=== PATIENT | female | born 1935 | race Caucasian/White ===

== ENCOUNTER 2016-12-02 09:13 | Inpatient (IN) | payer OTHER ==
[2016-12-02] VITALS (7 sets, daily range): BP systolic 145–187; BP diastolic 81–96
[~2016-12-02] VITALS: Ht 160 cm; Wt 91.9 kg
--- NOTE | ~2016-12-02 | 2DMMODE ---
[facility] [address] [place] [address] 2 D/M-MODE ECHOCARDIOGRAM Name: ZAIREGUERRERO Room #: 202-P [facility] IN ..#: [id number] Admission: 12/02/16 Attend Phys: Marko Encinas MD Discharge: Date of : 31 Date of Service: 12/03/16 1005 Report #: [id number] THIS REPORT FOR: //name// APPROVED REPORT Study performed: 12/03/2016 09:21:21 EXAM: Comprehensive 2D, Doppler, and color-flow Echocardiogram Patient Location: Bedside Room #: 202 Status: routine Other Information Study Quality: Adequate Indications Chest pain, palpitations, tachycardia. Hx: HTN 2D Dimensions RVDd: 34.66 mm LVEF(%): 64.80 (>50%) IVSd: 10.54 (7-11mm) LVOT Diam: 20.04 (18-24mm) LVDd: 44.79 mm PWd: 10.02 (7-11mm) Ascending Ao: 32.06 (22-36mm) LVDs: 28.99 (25-40mm) Aortic Root: 30.23 mm Baltazar's LVEF: 64.80 % Volumes Left Atrial Volume (Systole) Single Plane 4CH: 31.24 mL Single Plane 2CH: 32.92 mL Aortic Valve AoV Peak Charli.: 1.65 m/s AO Peak Gr.: 10.95 mmHg LVOT Max P.52 mmHg LVOT Max V: 1.46 m/s MALDONADO Vmax: 2.78 cm2 Mitral Valve E/A Ratio: 1.2 MV Decel. Time: 228.06 ms MV E Max Charli.: 1.27 m/s MV A Charli.: 1.06 m/s MV PHT: 66.14 ms IVRT: 87.66 ms [facility] [employer] [place] [address] 2 D/M-MODE ECHOCARDIOGRAM Name: GUERRERO TAI Room #: 202-P [facility] IN .R.#: [id number] Admission: 12/02/16 Attend Phys: Marko Encinas MD Discharge: Date of : 31 Date of Service: 12/03/16 1005 Report #: [id number] Pulmonary Valve PV Peak Charli.: 0.93 m/s PV Peak Gr.: 3.46 mmHg Pulmonary Vein P Vein S: 0.67 m/s P Vein D: 0.48 m/s P Vein S/D Ratio: 1.40 Tricuspid Valve RAP Estimate: 5.00 mmHg Left Ventricle The left ventricle is normal size. There is normal LV segmental wall motion. There is normal left ventricular wall thickness. Left ventricular systolic function is normal. LVEF is 60-65%. Moderate diastolic dysfunction is present (pseudonormal filling). Right Ventricle The right ventricle is normal size. The right ventricular systolic function is normal. Atria The left atrium size is normal. The right atrium size is normal. Aortic Valve The aortic valve is normal in structure. No aortic regurgitation is present. There is no aortic valvular stenosis. Mitral Valve The mitral valve is normal in structure. Mild mitral annular calcification. Trace mitral regurgitation. No evidence of mitral valve stenosis. Tricuspid Valve The tricuspid valve is normal in structure. There is no tricuspid valve regurgitation noted. Pulmonic Valve The pulmonary valve is normal in structure. There is no pulmonic valvular regurgitation. Great Vessels The aortic root is normal in size. The ascending aorta is normal in size. IVC is normal in size and collapses >50% with inspiration. [facility] [address] [place] [address] 2 D/M-MODE ECHOCARDIOGRAM Name: ZAIREGUERRERO Room #: 202-P [facility] IN .R.#: [id number] Admission: 12/02/16 Attend Phys: Marko Encinas MD Discharge: Date of : 31 Date of Service: 12/03/16 1005 Report #: [id number] Pericardium There is no pericardial effusion. <Conclusion> The left ventricle is normal size. LVEF is 60-65%. The aortic valve is normal in structure. The mitral valve is normal in structure. Mild mitral annular calcification. Trace mitral regurgitation. The tricuspid valve is normal in structure. The pulmonary valve is normal in structure. The aortic root is normal in size. <ELECTRONICALLY SIGNED> By: Kian Matias MD 12/03/16 1005 1005 1005 Kian Matias MD /INF
--- NOTE | ~2016-12-02 | EKG ---
[place] [address] [address] [facility] [place] [address] ELECTROCARDIOGRAM REPORT Name: GUERRERO TAI Room #: PRE M.R.#: [id number] Admission: Attend Phys: Discharge: Date of : 31 Report #: [id number] THIS REPORT FOR: //name// [facility] ED Test Date: 2016-12-02 Test Time: 09:15:19 Pat Name: GUERRERO TAI Department: Room: Gender: F Reverser: brandon : 1935 Requested By: Raine Ha Order Number: [id number] MD: Measurements Intervals [facility] [place] Rate: 130 P: 72 LA: 148 QRS: -16 QRSD: 88 T: 42 QT: 299 QTc: 440 Interpretive Statements Sinus tachycardia Borderline left axis deviation Baseline wander in lead(s) V1 Compared to ECG 02/14/2016 17:39:47 Poor R-wave progression no longer present [email or web address] By: 4 4 Epiphany Epiphany, /EPI
--- NOTE | ~2016-12-02 | HC ---
[facility] [place] [address] [place] [address] CONSULTATION Name: ZAIREGUERRERO Room #: 202-P [facility] IN M.R.#: [id number] Admission: 12/02/16 Attend Phys: Marko Encinas MD Discharge: 12/05/16 Date of : 31 Report #: [id number] THIS REPORT FOR: //name// CC: Jovani Encinas REASON FOR CONSULTATION: Hypertensive crisis and chest discomfort. HISTORY OF PRESENT ILLNESS: This is a very pleasant 81-year-old female patient who has had chronic issues with hypertension all her adult life. She apparently has significant kidney disease with a calculated GFR today of less than 30. The patient had been having issues with her blood pressure in the 140 to 150 systolic at her best. She developed some chest discomfort in the morning, which actually upon questioning was not anginal in nature, was associated to sensation of a tachycardia or fast heart rate. She stated that she had seen another physician yesterday, who wanted to optimize her antihypertensive regimen and asked her to abruptly stop her clonidine for which she was taking 2 pills of 0.2 daily and start hydralazine. After she did that, she noticed that her heart rate began going quite fast and she became concerned. Her blood pressure has also been quite elevated and fluctuated. Her son states that she is very anxious and is always worrying about things. She denies syncope or near syncope. She is a very active woman otherwise without any significant limitations. She states that in the past many years ago, she had an episode of what she calls a supraventricular tachycardia for which she has not had any major issues. She has a long list of allergies and sensitivities to medications in which atenolol is in those. PAST MEDICAL HISTORY: Significant for: 1. Hypertension. 2. Chronic kidney disease with a markedly decreased GFR. Past medications have been numerous, more recently had been clonidine 0.2 patch, but had a rash from the patch and switched to oral agents which was not controlling, the medication was getting her fatigued and tired. She is on hydrochlorothiazide 25. She states that dihydropyridine and diltiazem caused her lower extremities and ankles to swell up, but was never placed on concomitant AMBROSIO, ARB. MEDICATIONS: Reported medications are losartan, tramadol, gabapentin, lovastatin, omeprazole, aspirin, trazodone, nystatin, Phenergan, hydralazine x1 pill. ALLERGIES: No known drug allergies. Numerous sensitivities are noted in a sheet that she has at her bedside. SOCIAL HISTORY: The patient is . Does not smoke, consume alcohol, is very active, does not follow particular exercise regimen. [address] [address] CONSULTATION Name: GUERRERO TAI Room #: 202-P [facility] IN M.R.#: [id number] Admission: 12/02/16 Attend Phys: Marko Encinas MD Discharge: 12/05/16 Date of : 31 Report #: [id number] REVIEW OF SYSTEMS: Except for symptoms previously mentioned and those commensurate with comorbid states, the 10 point review of system is negative. PHYSICAL EXAMINATION: GENERAL: Well-developed white female, resting comfortably in no acute distress. VITAL SIGNS: Noted and reviewed in the chart. HEENT: Normocephalic, atraumatic. Pupils are equal, round, reactive to light and accommodation. Extraocular muscles are intact. Sclerae and conjunctivae are anicteric. NECK: JVD is normal. Carotid upstrokes are bilaterally symmetrical. No bruits are heard. No thyromegaly. No lymphadenopathy. LUNGS: Clear to auscultation. No wheezes, rhonchi or crackles. No CVA tenderness. CARDIAC: Demonstrates a regular rhythm. Normal first and second heart sounds. No ventricular or atrial gallops, no rubs noted. No murmurs. No lifts or heaves, PMI normal. ABDOMEN: Soft, nontender, nondistended. Normal bowel sounds. EXTREMITIES: Without cyanosis, clubbing or edema. Distal pulses are intact. DTR symmetrical. NEUROLOGIC: Cranial nerves 2-12 are grossly normal and symmetrical. PSYCHIATRIC: Alert, oriented with normal affect. SKIN: Warm and dry. DIAGNOSTIC DATA: Electrocardiogram, sinus tachycardia, normal axis, normal , no acute changes. LABORATORY DATA: Reviewed and noted in the chart with a BUN of 26, creatinine of 1.7 but a calculated GFR of 29. RADIOLOGIC DATA: Chest x-ray without acute processes. IMPRESSION: 1. Chest pains, not anginal in nature, but she has not had a stress test for quite some time, I think we can perform that as an outpatient since it does not appear to be anginal, but associated with her tachycardia. The tachycardia could have been because of the abrupt removal of clonidine or other issues. She does have a history of SVT in the past. She was started on atenolol once again in this admission for which she was profoundly fatigued and tired previously. In view of this, I am going to stop that. We will try verapamil instead with the use of the hydrochlorothiazide and the presence of the losartan also to see we can control blood pressures. 2. Hypertension. We are going to proceed with the medication as stated above to see if we can bring that under better control without any major symptoms. 3. Urinary tract infection is diagnosed in chart as per primary care and nephrology. [facility] [address] [place] [address] CONSULTATION Name: GUERRERO TAI Room #: 202-P [facility] IN M.R.#: [id number] Admission: 12/02/16 Attend Phys: Marko Encinas MD Discharge: 12/05/16 Date of : 31 Report #: [id number] 4. Chronic kidney disease. This may be a major aspect of why she has significant difficult blood pressure and we will need to further pursue that. <ELECTRONICALLY SIGNED> By: Kian Matias MD 12/07/16 1720 [id number] [id number] Kian Matias MD /nt
--- NOTE | ~2016-12-02 | D ---
[facility] [place] [address] DISCHARGE SUMMARY Name: GUERRERO TAI Room #: 202-P [facility] IN M.R.#: [id number] Admission: 12/02/16 Attend Phys: Marko Encinas MD Discharge: 12/05/16 Date of : 31 Report #: [id number] THIS REPORT FOR: //name// CC: Jovani Encinas DATE OF SERVICE: 12/05/2016 DISCHARGE DIAGNOSES: 1. Hypertensive urgency. 2. Acute kidney injury. 3. Hyperlipidemia. 4. Tachycardia. 5. Hypoalbuminemia. PROCEDURE DONE: VQ scan and chest x-ray. CONSULTATION: Cardiology consultation. OTHER PROCEDURES: Echocardiogram. REASON FOR THE PRESENTATION: This is an 81-year-old who presented with chest pain and palpitation. HISTORY OF PRESENT ILLNESS: An 81-year-old who presented to the emergency room complaining of tachycardia and elevated blood pressure with associated chest pain. She had some palpitation after she was started on hydralazine recently. She was taking atenolol. She presented to the emergency room with tachycardia with a heart rate of 120-140, associated with some tightness of the chest and was admitted for further evaluation and management. HOSPITAL COURSE: The patient was ruled out for acute coronary syndrome. VQ was negative for PE. Echocardiogram was done and this revealed an ejection fraction of 60% to 65% with moderate diastolic dysfunction. She had an elevated creatinine on presentation at 1.7 that resolved with hydration with creatinine coming down to a baseline of 1.4. We have adjusted her blood pressure medications and she should be on the following. 1. Carvedilol 25 mg twice a day. 2. . 3. Promethazine 25 mg p.r.n. 4. Verapamil was added and she should take 80 mg 3 times a day. 5. Aspirin. 6. Tramadol. 7. Trazodone. [facility] [address] [place] [address] DISCHARGE SUMMARY Name: GUERRERO TAI Room #: 202-P [facility] IN [facility].#: [id number] Admission: 12/02/16 Attend Phys: Marko Encinas MD Discharge: 12/05/16 Date of : 31 Report #: [id number] 8. Hydrochlorothiazide. 9. Losartan 100 mg. Those should be her blood pressure medications on going on. Please realize that we have discontinued her atenolol and we have discontinued her hydralazine. DISCHARGE DIAGNOSIS: Good. DIET: Low salt diet. FOLLOWUP: 1. She is to follow up with Dr. Matias in 2 weeks. 2. She is to follow up with her primary care physician Dr. Jovani Unger in 2 weeks. DISCHARGE MEDICATIONS: See above notes. DISCHARGE CONDITION: Excellent. <ELECTRONICALLY SIGNED> By: Kelton Shepard MD 12/05/16 1548 1002 1110 Kelton Shepard MD /geoffrey
[~2016-12-02 09:13] MED LIST: ATENOLOL 50MG T50 M1 PO; CATAPRES-TTS 20.2 M1 TRANSDERM; CEPHALEXIN 500500 M3 PO; COZAAR 50 MG TA50 M2 PO; HYDRALAZINE 2525 MG PO; HYDROCHLOROTHIA25 M1 PO; HYTRIN 1 MG CAP1 MG GT; HYTRIN 5 M5 MG/1 CAP PO; LOSARTAN POTAS100 MG PO; LOVASTATIN40 MG PO; NEURONTIN 300300 M1 PO; NORCO 5-325 TA1 EACH PO; OMEPRAZOLE 20 M20 M1 PO; TRAMADOL 50 MG50 MG PO
[2016-12-02 09:30] LABS: ABSOLUTE NEUTROPHILS 6.1 thou/uL (1.4-8.2); BASOPHILS 0.7 % (0.0-2.0); HEMATOCRIT 39.3 % (37.0-47.0); HEMOGLOBIN 13.4 gm/dL (12.0-15.0); LYMPHOCYTES 21.2 % (24.0-44.0); MCH 31.3 pg (26.0-34.0); MCV 92.2 fL (80.0-100.0); MONOCYTES 6.6 % (1.0-8.0); PLATELET COUNT 218 thou/uL (150-400); POLYS 69.5 % (36.0-66.0); RBC 4.27 mil/uL (4.20-5.00); RDW 13.1 % (10.5-14.5); WBC 8.8 thou/uL (4.0-11.0)
[2016-12-02 09:33] LABS: MANUAL DIFF NO
[2016-12-02 09:38] LABS: ANION GAP 10 mmol/L (7-16); BUN 26 mg/dL (7-18); CALCIUM 9.5 mg/dL (8.5-10.1); CHLORIDE 99 mmol/L (98-107); CO2 28 mmol/L (21-32); CREATININE 1.7 mg/dL (0.6-1.0); GLUCOSE 190 mg/dL (74-106); POTASSIUM 3.8 mmol/L (3.5-5.1); SODIUM 137 mmol/L (136-145)
[2016-12-02 09:47] LABS: ALKALINE PHOSPHATASE 81 U/L (46-116); SGOT 25 U/L (15-37); SGPT 26 U/L (30-65); TOTAL BILIRUBIN 0.3 mg/dL (<0.1-1.0); TOTAL PROTEIN 7.6 g/dL (6.4-8.2); TROPONIN-I < 0.04 ng/mL (<0.04-0.07)
[2016-12-02 10:27] LABS: URINE BILIRUBIN NEGATIVE (Negative); URINE BLOOD NEGATIVE (Negative); URINE COLOR YELLOW; URINE GLUCOSE-RANDOM* NEGATIVE (Negative); URINE KETONES NEGATIVE (Negative); URINE NITRITE NEGATIVE (Negative); URINE PROTEIN (DIPSTICK) NEGATIVE (Negative); URINE SPECIFIC GRAVITY <= 1.005 (1.003-1.035); URINE UROBILINOGEN 0.2 E.U./dl (0.2-1.0)
[2016-12-02 10:43] LABS: AMORPHOUS URATES Moderate /LPF (None Seen); CASTS None Seen /LPF (None Seen); SQUAMOUS 0-3 Few /LPF (0-3); URINE RBC 0-2 Rare /HPF (0-2); URINE WBC 0-5 Rare /HPF (0-5)
[2016-12-02 10:44] LABS: BACTERIA 1-9 Few /HPF (None Seen)
[2016-12-02] MEDS ORDERED: ASPIR 8181 MG PO (15:11)
[2016-12-02] MEDS ORDERED: NYAMYC15 GM TOP (15:13)
[2016-12-02] MEDS ORDERED: TRAZODONE HCL50 MG PO (15:13)
[2016-12-02] MEDS ORDERED: PHENERGAN 25 MG25 M1 PO (15:15)
[2016-12-02] MEDS ORDERED: HYDRALAZINE 2525 MG PO (15:16)
[2016-12-03 01:26] LABS: HEMATOCRIT 35.1 % (37.0-47.0); MCH 31.4 pg (26.0-34.0); MCHC 34.1 g/dL (28.0-37.0); MCV 92.3 fL (80.0-100.0); RBC 3.8 mil/uL (4.20-5.00); RDW 12.9 % (10.5-14.5); WBC 5.7 thou/uL (4.0-11.0)
[2016-12-03 01:41] LABS: CALCIUM 8.3 mg/dL (8.5-10.1); CREATININE 1.3 mg/dL (0.6-1.0); POTASSIUM 4.4 mmol/L (3.5-5.1)
[2016-12-03 03:14] VITALS: BP 149/88
[2016-12-03 07:13] VITALS: BP 177/94
[2016-12-03 11:22] VITALS: BP 153/69
[2016-12-03 16:25] VITALS: BP 158/77
[2016-12-03 19:21] VITALS: BP 181/87
[2016-12-03 23:36] VITALS: BP 187/94
[2016-12-04 04:03] VITALS: BP 174/87
[2016-12-04 05:28] LABS: HEMATOCRIT 38.3 % (37.0-47.0); HEMOGLOBIN 12.9 gm/dL (12.0-15.0); MCH 31.5 pg (26.0-34.0); MCHC 33.8 g/dL (28.0-37.0); MCV 93.2 fL (80.0-100.0); RBC 4.11 mil/uL (4.20-5.00); RDW 13.3 % (10.5-14.5); WBC 9.2 thou/uL (4.0-11.0)
[2016-12-04 05:31] LABS: CREATININE 1.4 mg/dL (0.6-1.0); POTASSIUM 4.3 mmol/L (3.5-5.1)
[2016-12-04 07:25] VITALS: BP 150/81
[2016-12-04 11:58] VITALS: BP 129/67
[2016-12-04 15:52] VITALS: BP 102/63
[2016-12-04 19:15] VITALS: BP 105/51
[2016-12-04 23:25] VITALS: BP 116/55
[2016-12-05 03:28] VITALS: BP 122/74
[2016-12-05 05:11] LABS: HEMATOCRIT 37.5 % (37.0-47.0); HEMOGLOBIN 12.6 gm/dL (12.0-15.0); MCH 31.3 pg (26.0-34.0); MCHC 33.7 g/dL (28.0-37.0); MCV 92.6 fL (80.0-100.0); RBC 4.05 mil/uL (4.20-5.00); RDW 13.1 % (10.5-14.5); WBC 6.5 thou/uL (4.0-11.0)
[2016-12-05 05:27] LABS: ALBUMIN 3.3 g/dL (3.4-5.0); CALCIUM 8.8 mg/dL (8.5-10.1); CREATININE 1.4 mg/dL (0.6-1.0); PHOSPHORUS 3.7 mg/dL (2.5-4.9); POTASSIUM 4.1 mmol/L (3.5-5.1)
[2016-12-05 07:15] VITALS: BP 135/70
[2016-12-05 09:51] VITALS: BP 135/70
[2016-12-05] MEDS ORDERED: CARVEDILOL25 MG PO (09:52)
[2016-12-05] MEDS ORDERED: VERAPAMIL HCL 880 M1 PO (09:53)
[2016-12-05 11:30] VITALS: BP 116/54
[2016-12-05 11:35] VITALS: BP 116/54; BP 137/78
== END 2016-12-05 13:58 | disposition home or self-care (01) | DRG 871 ==
LOC: ER 09:13 → EROBS 10:47 → 2N 10:47
PROVIDERS: Hospitalist; Physician Assistant
DX: A41.9 Sepsis, unspecified organism (principal); N17.0 Acute kidney failure with tubular necrosis; N39.0 Urinary tract infection, site not specified; N17.9 Acute kidney failure, unspecified; T78.1XXA Other adverse food reactions, not elsewhere classified, initial encounter; I12.9 Hypertensive chronic kidney disease with stage 1 through stage 4 chronic kidney disease, or unspecified chronic kidney disease; N18.9 Chronic kidney disease, unspecified; R00.0 Tachycardia, unspecified; I16.0 Hypertensive urgency; E78.5 Hyperlipidemia, unspecified; F41.9 Anxiety disorder, unspecified; Z79.899 Other long term (current) drug therapy
CPT/HCPCS: 10081